=== PATIENT | female | born 1950 | race Caucasian/White ===

== ENCOUNTER 2024-06-03 14:59 | Emergency (ER) | payer OTHER ==
[2024-06-03 15:25] VITALS: BP 151/74; PULSE 59; RESP 18; TEMP 98; BMI 28.0
[2024-06-03 15:44] LABS: HEMOGLOBIN 13.3 G/dL (10.7-15.3); MCH 29.4 pg (25.7-33.7); MCHC 32.4 g/dl (32.0-36.0); MEAN CELL VOLUME 90.8 fl (80-96); MEAN PLT VOLUME 9.9 fl (7.5-11.1); PLATELET COUNT 166.4 10^3/uL (134-434); RBC 4.52 10^6/uL (3.60-5.2); RDW 14.2 % (11.6-15.6)
[2024-06-03 16:04] LABS: ALBUMIN 4.6 g/dl (3.4-5.0); ALK PHOS 63 U/L (45-117); ANION GAP 8 mmol/L (4-13); BILIRUBIN,TOTAL 0.6 mg/dl (0.2-1); CALCIUM 10.3 mg/dl (8.5-10.1); CHLORIDE 106 mmol/L (98-107); CO2 24 mmol/L (21-32); CREATININE 0.8 mg/dl (0.6-1.3); GLUCOSE,RANDOM 113 mg/dl (74-106); POTASSIUM 4.3 mmol/L (3.5-5.1); SGOT/AST 16 U/L (15-37); SGPT/ALT 13 U/L (7-52); SODIUM 138 mmol/L (136-145); TOT PROT 6.8 g/dl (6.4-8.2)
[2024-06-03 16:13] LABS: PLATELET ESTIMATE ADEQUATE
[2024-06-03] MEDS ORDERED: KETOROLAC TROMETHAMINE 15 MG/ML VIAL ONE (16:16)
[2024-06-03] MEDS: KETOROLAC TROMETHAMINE 15 MG/ML VIAL IVPUSH ONE (16:21)
[2024-06-03] MEDS: KETOROLAC TROMETHAMINE 10 MG TABLET PO ONE (16:22)
== END 2024-06-03 18:08 | disposition home or self-care (01) ==
LOC: FER 14:59
PROC: 3E0333Z Introduction of Anti-inflammatory into Peripheral Vein, Percutaneous Approach (ICD-10-PCS; principal; 2024-06-03)
DX: R10.12 Left upper quadrant pain (principal); R07.81 Pleurodynia; M54.6 Pain in thoracic spine
CPT/HCPCS: 36415; 71101-TC-LT-FY; 74176-TC; 80053; 81003; 85027; 96374; 99285-25